=== PATIENT | male | born 1965 | race Caucasian/White ===

== ENCOUNTER 2019-03-30 11:07 | Day surgery (SDC) | payer OTHER ==
[~2019-03-30] VITALS: Ht 177.8 cm; Wt 108.9 kg
[~2019-03-30 11:07] MED LIST: CYMBALTA60 MG PO; ELAVIL75 MG PO; HUMALOG 30100 UNITS/ SQ; LANTUS INSULIN10 ML SQ; LIPITOR80 MG PO; LISINOPRIL5 MG PO; PROTONIX40 MG PO; ZANTAC300 MG PO
[2019-03-30 12:00] LABS: HEMATOCRIT 44.5 % (42.0-54.0); HEMOGLOBIN 15.1 g/dL (13.5-17.5); MCH 28.8 pg (26.0-34.0); MCHC 33.9 g/dL (31.0-37.0); MCV 84.8 fL (80.0-100.0); MEAN PLATELET VOLUME 10.1 fL (7.4-10.4); RBC 5.25 10x6/uL (4.20-6.10); RDW 12.7 % (11.5-14.5); WBC 8.3 10x3/uL (4.8-10.8)
[2019-03-30 12:02] LABS: CALC OSMOLALITY 281 mosm/kg (275-300); CALCIUM 9.1 mg/dL (8.5-10.1); CARBON DIOXIDE 29.4 mmol/L (21.0-32.0); CHLORIDE - SERUM 101 mmol/L (98-107); CREATININE - SERUM 0.9 mg/dL (0.6-1.3); GLUCOSE 230 mg/dL (74-106); POTASSIUM - SERUM 4.5 mmol/L (3.5-5.1); SODIUM 137 mmol/L (136-145); UREA NITROGEN 14 mg/dL (7-18); eGFR NON AFRICAN AMERICAN > 90 mL/min (90-120)
[2019-03-30 12:51] VITALS: BP 131/77; Ht 177.8 cm; Wt 108.9 kg
[2019-03-30] MEDS ORDERED: PERCOCET 5-3251 TAB PO (15:05)
[2019-03-30] MEDS ORDERED: DURICEF500 MG PO (15:06)
--- NOTE | 2019-03-30 15:48 | NUR ---
FSBS 166.
--- NOTE | 2019-03-30 18:02 | NUR ---
1800 DC INSTS GIVEN RX'S GIVEN VOICED UNDERSTANDING RELEASED IN WC.
--- NOTE | 2019-03-31 07:56 | OP ---
PATIENT NAME: JES CORREA MEDICAL RECORD: [id number] :63 LOCATION:[facility] ADMISSION DATE: SURGEON: TREVOR HOUSE DO DATE OF OPERATION: 03/30/2019 PROCEDURES PERFORMED: Right second metatarsal open reduction and internal fixation and bone biopsy of the first metatarsal. 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 INDICATIONS: Mr. Correa is a 53-year-old male who has a diabetic neuropathy of both feet. In the right foot, he had some pain and he did not remember injuring it. X-ray was done seeing a fracture of the second metatarsal and then what appeared to be neuropathic arthropathy versus osteomyelitis of the first metatarsophalangeal joint. An MRI was done and was inconclusive for osteomyelitis versus neuropathic arthropathy of the first metatarsophalangeal joint. Also, the second metatarsal base fracture had displaced superiorly and was bothering him and it was quite painful and informed him that there is a very big risk for infection going on in a foot like this, but he was tired of dealing with the pain and wanted something done. I told him that I would also biopsy the first metatarsal and send it to pathology and figure out what is going on with it. He was okay with that plan and is okay with the weightbearing restrictions and signed the consent. Also, the risk of blood clots and even . SURGEON: Trevor House DO DESCRIPTION OF PROCEDURE: The patient went to the operative suite, was laid in the supine position, given general anesthetic, given 2 grams of Ancef preoperatively. The right lower extremity was prepped and draped in sterile fashion. A timeout was performed and everyone was in agreement of the correct side, site, and patient and procedure. Everyone was in agreeance of the timeout. The x-ray machine was then brought in. Second metatarsal fracture was then marked as well as the first metatarsal and the inflamed first MTP joint and then bone biopsies were done in the first metatarsal and in the proximal phalanx of the first toe due to being involved and then a dorsal incision was made over the second metatarsal base. Careful dissection was made down to the base. The fracture was exposed and reduced with a T-type plate at the base and then over the fracture, the pins were kept in place holding the plate and reduction and then screws were put in first proximally and then distally and then another third screw obliquely through the fracture site. These locked into the plate and were confirmed to be in good position on AP and lateral and oblique x-rays. Once that was confirmed, the tourniquet was let down, any bleeding was coagulated with a Bovie and pickup and then the whole foot was irrigated. The skin incision for the ORIF was closed with 3-0 Vicryl in an inverted interrupted fashion and then 4-0 Prolene in a horizontal mattress fashion and then the bone biopsies were closed with horizontal mattress as well. The incision was placed with Adaptic, 4 x 4s, ABD, Webril, and Fidencio wrap and then placed into a postop OPERATIVE REPORT [id number] JES CORREA. He was awakened and taken to the recovery in stable condition. The tourniquet was inflated at the beginning of the procedure after the right lower extremity was exsanguinated with an Esmarch and a tourniquet was inflated to 350 mmHg and was up for approximately 48 minutes and then let down at the end of the procedure. TRANSINT:[id number] Voice Confirmation ID: [id number] DOCUMENT ID: [id number] TREVOR HOUSE DO at 0756 CC: [id number] DICTATION DATE: 03/30/19 1513 GARAGE DOOR HANGER: 03/30/19 2326 [facility] 03/30/19 [address] [place] [address]
== END 2019-03-30 18:15 | disposition home or self-care (01) ==
LOC: D.OPS 11:07 → D.PAN 13:30 → D.OPS 13:30
PROVIDERS: Anesthesiology; ATTEND Orthopaedic Surgery
DX: S92.321A Displaced fracture of second metatarsal bone, right foot, initial encounter for closed fracture (principal); X58.XXXA Exposure to other specified factors, initial encounter; M85.871 Other specified disorders of bone density and structure, right ankle and foot

== ENCOUNTER 2019-04-04 22:52 | Inpatient (IN) | payer OTHER ==
[~2019-04-04] VITALS: Ht 177.8 cm; Wt 120.2 kg
--- NOTE | ~2019-04-04 | HEMODYNAMI ---
PATIENT:JES EARL MEDICAL RECORD: [id number] : 63 [address] [id number] ADMISSION DATE: 04/05/19 Generatedon:04/08/201914:20 Patient name: JES EARL Patient #: [id number] SSN: : 1965 Date of study: 04/08/2019 Page: Of Hemodynamic Procedure Report Patient Data Patient Demographics Procedure consent was obtained First Name: JES Gender: Male Last Name: MADY : 1965 Middle Initial: AFLONSO Age: 53 year(s) Patient #: [id number] Race: Unknown Additional ID: [id number] Contact details [address]: [address] [place] [address] State: [place] City: [place] Zip code: [address] Admission Admission Data Admission Date: 04/05/2019 Admission Time: 0:33 Admit Source: Other Room #: D.2136 Procedure Procedure Types Cath Procedure Diagnostic Procedure LHC LHC w/Coronaries Procedure Description Procedure Date Procedure Date: 04/08/2019 Procedure Start Time: 14:10 Procedure End Time: 14:19 Procedure Staff Name Function Theodore Valenzuela MD Performing Physician Irene Luciano RT Monitor Aparna Dobbs RT Scrub Panchito Foss RT Scrub Adele Nelson RN Nurse Procedure Data Cath Procedure Fluoroscopy Diagnostic fluoroscopy Total fluoroscopy Time: 1.3 time: 1.3 min min Diagnostic fluoroscopy Total fluoroscopy dose: 488 dose: 488 mGy mGy Contrast Material Contrast Material Type Amount (ml) Isovue 370 51 Entry Location Entry Primary Successful Side Size Upsize Upsize Entry Closure Succes sful Closure Location (Fr) 1 (Fr) 2 (Fr) Remarks Device Remarks Femoral Right 5 Fr Exoseal artery Estimated blood loss: 5 ml Diagnostic catheters Device Type Used For End Catheter Placement MULTIPACK JL 4.0 5Fr Left Coronary catheter Angiography MULTIPACK 3DRC 5Fr Right Coronary catheter Angiography MULTIPACK Pigtail 5 Fr LV Angiography catheter Procedure Complications No complications Procedure Medications Medication Administration Route Dosage 0.9% NaCl I.V. 100 ml/hr Oxygen etCO2 Nasal cannula 2 l/min Lidocaine 2% added to field 20 Heparin Flush Bag added to field 2 bags (1000units/500ml NS) Versed I.V. 2 mg Fentanyl I.V. 50 mcg Fentanyl I.V. 50 mcg Hemodynamics Rest Heart Rate: 81 (bpm) Pressure Samples Time Site Value (mmHg) Purpose Heart Use Rate(bpm) 14:16 LV 123/12,14 Snapshot 87 Gradients Valve Time Site Site Mean SEP/DFP Peak To Heart Use 1 2 (mmHg) (sec/min) Peak Rate (mmHg) (bpm) Aortic 14:16 LV AO 88 Snapshots Pre Cath Intra NCS Post Cath Vital Signs Time Heart Resp SPO2 etCO2 NIBP (mmHg) Rhythm Pain Sedation Rate (ipm) (%) (mmHg) Status Level (bpm) 14:01:43 80 16 99 35.8 171/105(143) NSR 0 (11) 10(A) , No pain 14:06:10 82 16 99 34.3 171/107(138) NSR 0 (11) 10(A) , No pain 14:10:26 84 17 97 35.8 160/103(126) NSR 0 (11) 10(A) , No pain 14:14:48 81 14 98 36.6 171/99(135) NSR 0 (11) 9(A) , No pain 14:19:10 88 14 98 37.3 171/107(136) NSR 0 (11) 10(A) , No pain Medications Time Medication Route Dose Verified Delivered Reason Notes Eff ectiveness by by 14:00:39 0.9% NaCl I.V. 100 Theodore Angulo used for ml/hr St Shawn Nelson procedure MD SAUCEDO 14:00:46 Oxygen etCO2 2 Theodore Angulo used for Nasal l/min St Shawn Nelson procedure cannula MD SAUCEDO 14:00:52 Lidocaine 2% added 20ml Theodore Jaimes for local to vial [facility] anesthetic field MD SALDAÑA 14:00:55 Heparin Flush added 2 Theodore Jaimes used for Bag to bags BiancaShawn Valenzuela procedure (1000units/500ml field MD SALDAÑA NS) 14:06:34 Versed I.V. 2 mg Theodore Arredondoa for Bianca Omar sedation MD SAUCEDO 14:06:39 Fentanyl I.V. 50 Theodore [facility] [place] [place] St Shawn Nelson sedation RN 14:10:51 Fentanyl I.V. 50 Theodore [facility] St Shawn Nelson sedation business taxes specialist Log Time Note 13:42:57 Informed consent obtained and on chart 13:43:00 Admit Source: Other 13:43:20 Diagnostic Cath status Elective 13:43:22 Adele eNlson RN sent for patient. Start room use. :43:22 Time tracking: Regular hours (M-F 7:00 - 5:00) 13:43:25 Plan of Care:Hemodynamics will remain stable., Cardiac rhythm will remain stable., Comfort level will be maintained., Respiratory function will remain adequate., Patient/ family verbilizes understanding of procedure., Procedure tolerated without complication., Recovers from procedure without complications.. 13:53:10 Patient received from Med/Surg to CCL 2 Alert and oriented. Tansferred to table in Supine position. 13:53:10 Warm blankets applied, and vu hugger turned on for patient comfort. 13:53:11 Correct patient and procedure confirmed by team. 13:53:11 ECG and BP/O2 sat monitors applied to patient. 13:53:13 Pre-procedure instructions explained to patient. 13:53:13 Pre-op teaching completed and patient verbalized understanding. 13:53:16 Family in patients room. 13:53:17 Patient NPO since Midnight. 14:00:27 Vital chart was started 14:00:39 0.9% NaCl 100 ml/hr I.V. was administered by Adele Nelson RN; used for procedure; 14:00:46 Oxygen 2 l/min etCO2 Nasal cannula was administered by Adele Nelson RN; used for procedure; 14:00:52 Lidocaine 2% 20ml vial added to field was administered by Theodore Valenzuela MD; for local anesthetic; 14:00:55 Heparin Flush Bag (1000units/500ml NS) 2 bags added to field was administered by Theodore Valenzuela MD; used for procedure; 14:01:34 Baseline sample Acquired. 14:01:37 Rhythm: sinus rhythm 14:01:38 Full Disclosure recording started 14:02:00 Is the patient allergic to Iodine/contrast media? No. 14:02:02 Was the patient premedicated? No 14:02:10 Is patient on blood thinner?No 14:02:11 Patient diabetic? Yes. 14:02:12 If diabetic: On Metformin? No 14:04:13 Previous problem with sedation/anesthesia? No ? 14:04:15 Snore? Yes 14:04:17 Sleep apnea? No 14:04:20 Deviated septum? No 14:04:20 Opens mouth fully? Yes 14:04:21 Sticks out tongue? Yes 14:04:23 Airway obstruction? No ? 14:04:25 Dentures? No ? 14:04:29 Pre procedure: left dorsailis pedis pulse 2+ Normal; easily identifiable; not easily obliterated 14:04:32 Pre procedure: right dorsailis pedis pulse 1+ Palpable, but thready & weak; easily obliterated 14:04:36 Patient pain scale 0/10 ?. 14:04:46 IV patent on arrival in left forearm with 0.9% NaCl at [facility]. 14:04:49 Lab results completed and on chart. 14:04:54 Right groin area was prepped with chlora-prep and draped in sterile fashion 14:04:55 Alarms reviewed by R. N. 14:04:55 Sharps counted by scrub and verified by R.N. 14:04:57 Physician arrived 14:04:57 --------ALL STOP TIME OUT------ 14:04:58 Final Timeout: patient, procedure, and site verified with staff and physician. All members of the team are in agreement. 14:05:00 Right groin site verified by team. 14:05:04 Maximum allowable Isovue 370 dose 300ml. Physician notified. (300ml for normal creatinines. For patients with creatinine of 1.7 or higher multiply weight(kg) x 5 divided by creatinine.) 14:05:09 Fire Safety Assessment: A--An alcohol-based skin anteseptic being used preoperatively., C--Open oxygen or nitrous oxide is being used., D--An ESU, laser, or fiber-optic light is being used. 14:05:12 Physical assessment completed. ASA score P 2 - A patient with mild systemic disease as per Theodore Valenzuela MD. 14:05:15 Sedation plan: IV Moderate Sedation Medication:Versed, Fentanyl 14:05:20 Use device set Femoral Dx 14:05:21 ACIST Syringe (25687) opened to sterile field. 14:05:21 Bag Decanter (2002S) opened to sterile field. 14:05:22 Medline Cath Pack ([id number]) opened to sterile field. 14:05:22 DIAGNOSTIC WIRE .035 260cm J wire (224308) opened to sterile field. 14:05:24 ACIST Hand Control (45282) opened to sterile field. 14:05:24 ACIST Manifold (09051) opened to sterile field. 14:05:25 DIAGNOSTIC Multipack 5Fr catheter set (CM9710) opened to sterile field. 14:05:25 Tegaderm 4 x 4 (1626W) opened to sterile field. 14:05:26 SHEATH 5FR Metz (EQI540) opened to sterile field. 14:06:34 Versed 2 mg I.V. was administered by Adele Nelson RN; for sedation; 14:06:39 Fentanyl 50 mcg I.V. was administered by Adele Nelson RN; for sedation; 14:10:51 Fentanyl 50 mcg I.V. was administered by Adele Nelson RN; for sedation; 14:10:54 Procedure started. 14:10:57 Local anesthetic to right femoral artery with Lidocaine 2% by Theodore Valenzuela MD.INITIAL ACCESS ONLY 14:11:13 A 5 Fr sheath was inserted into the Right Femoral artery 14:11:56 A MULTIPACK JL 4.0 5Fr catheter was advanced over the wire and used for Left Coronary Angiography. 14:12:18 LCA angiography performed. 14:12:21 Injector settings: Ml/sec: 3, Volume: 6, 14:12:51 Catheter removed. 14:13:56 A MULTIPACK 3DRC 5Fr catheter was advanced over the wire and used for Right Coronary Angiography. 14:14:27 RCA angiography performed. 14:14:32 Injector settings: Ml/sec: 3, Volume: 6, 14:15:26 Catheter removed. 14:15:36 A MULTIPACK Pigtail 5 Fr catheter was advanced over the wire and used for LV Angiography. 14:16:06 LV hemodynamics recorded. 14:16:07 LV gram done using LORENZ 14:16:10 Injector settings: Ml/sec: 5, Volume: 15, 14:16:25 EF : 55 % 14:16:27 Catheter removed. 14:16:30 EXOSEAL 5Fr (EX500) opened to sterile field. 14:18:01 Sheath removed intact; hemostasis achieved with Exoseal to the Right Femoral artery. 14:18:02 Procedure ended.(Physican Out) 14:18:24 Fluoroscopy time 01.30 minutes. 14:18:28 Fluoroscopy dose: 488 mGy 14:18:28 Flurop Dose total: 488 14:18:32 Contrast amount:Isovue 370 51ml. 14:18:36 Sharps counted by scrub and verified by R.N. 14:18:41 Insertion/operative site no bleeding no hematoma. 14:18:44 Post procedure rhythm: unchanged. 14:18:47 Estimated blood loss: 5 ml 14:18:48 Post procedure instruction explained to patient.Patient verbalizes understanding. 14:18:49 Patient needs reinforcement of post procedure teaching. 14:18:58 Procedure and supply charges have been captured, reviewed, submitted and are correct. 14:19:11 Procedure Complication : No complications 14:19:13 Vital chart was stopped 14:19:13 See physician's report for complete and final results. 14:19:15 Report given to [facility] II. 14:19:18 Patient transfered to Med II with Stretcher. 14:19:20 Procedure ended. 14:19:20 Full Disclosure recording stopped 14:19:23 End room use (Document Last) Device Usage Item Name Manufacture Quantity Catalog Hospital Part Current Minimal L ot# / Number Charge Number Stock Stock Serial# Code ACIST Acist 1 32354 668428 504639 980152 20 Syringe Medical (42038) Systems Inc Bag Microtek 1 405827 41887 863319 5 Decanter Medical Inc. () Medline Medline 1 [id number] 993683 21807 814975 5 Cath Pack ([id number]) DIAGNOSTIC St Tony 1 005864 861266 865061 203757 30 WIRE .035 260cm J wire (397439) ACIST Hand Acist 1 84554 011922 574079 938383 5 Control Medical (48194) Systems Inc ACIST Acist 1 18540 114707 325872 990949 5 Manifold Medical (97721) Systems Inc DIAGNOSTIC Cardinal 1 NV1293 803552 10608 902861 30 [facility] 5Fr catheter set (CF5198) Tegaderm 4 3M 1 1626W 070550 704210 444792 5 x 4 (1626W) SHEATH 5FR Terumo 1 GTH284 449657 450888 358705 5 Metz (NXE309) MULTIPACK Cardinal 1 461861 5 JL 4.0 5Fr Health catheter MULTIPACK Cardinal 1 557114 5 3DRC 5Fr Health catheter MULTIPACK Cardinal 1 946288 5 Pigtail 5 Health Fr catheter EXOSEAL 5Fr Cardinal 1 EX500 332940 841082 093595 10 (EX500) Health Signature Audit [place] Stage Time Signature Unsigned Intra-Procedure 04/08/2019 Irene Luciano 2:20:02 PM RT(R) Signatures Monitor : Irene Luciano RT Signature : Date : Time : [id number] [place] [address]
[~2019-04-04 22:52] MED LIST changes: +DURICEF500 MG PO; +PERCOCET 5-3251 TAB PO
[2019-04-05] VITALS (7 sets, daily range): BP systolic 120–158; BP diastolic 74–89; Ht 177.8 cm; Wt 120.2 kg
[2019-04-05 00:04] LABS: HEMATOCRIT 43.9 % (42.0-54.0); HEMOGLOBIN 14.8 g/dL (13.5-17.5); LYMPHOCYTES 19.7 % (15-50); MCH 28.2 pg (26.0-34.0); MCHC 33.7 g/dL (31.0-37.0); MCV 83.8 fL (80.0-100.0); MEAN PLATELET VOLUME 9.2 fL (7.4-10.4); NEUTROPHILS 65.6 % (40-80); PLATELET COUNT 327 10x3/uL (130-400); RBC 5.24 10x6/uL (4.20-6.10); RDW 12.1 % (11.5-14.5); WBC 8.4 10x3/uL (4.8-10.8)
[2019-04-05 00:25] LABS: ALBUMIN 3.1 g/dL (3.4-5.0); ANION GAP 13.5 mmol/L (8-16); BILIRUBIN - TOTAL 0.23 mg/dL (0.2-1.3); CALCIUM 9.3 mg/dL (8.5-10.1); CARBON DIOXIDE 24.3 mmol/L (21.0-32.0); CREATININE - SERUM 1.1 mg/dL (0.6-1.3); POTASSIUM - SERUM 3.8 mmol/L (3.5-5.1); PROTEIN - SERUM 7.7 g/dL (6.4-8.2)
--- NOTE | 2019-04-05 04:19 | NUR ---
I have reviewed this patient and I concur with the Shift Assessment completed by the Licensed Practical Nurse today this shift.
--- NOTE | 2019-04-05 07:25 | NUR ---
ASSESSMENT DONE. DENIES NEEDS
--- NOTE | 2019-04-05 14:58 | NUR ---
I have reviewed this patient and I concur with the Shift Assessment completed by the Licensed Practical Nurse today this shift.
--- NOTE | 2019-04-05 17:20 | NUR ---
WITHOUT CHANGES OR DISTRESS NOTED ATT THIS TIME. DENIES NEEDS
[2019-04-05 22:46] LABS: BASOPHILS 0.2 % (0-2); EOSINOPHILS 3.6 % (0-7); HEMATOCRIT 44.1 % (42.0-54.0); HEMOGLOBIN 15.1 g/dL (13.5-17.5); IMMATURE GRANULOCYTES 0.3 % (0-5); LYMPHOCYTES 28.8 % (15-50); MCH 28.9 pg (26.0-34.0); MCHC 34.2 g/dL (31.0-37.0); MCV 84.5 fL (80.0-100.0); MEAN PLATELET VOLUME 9.3 fL (7.4-10.4); MONOCYTES 12.5 % (2-11); NEUTROPHILS 54.6 % (40-80); PLATELET COUNT 328 10x3/uL (130-400); RBC 5.22 10x6/uL (4.20-6.10); RDW 12.5 % (11.5-14.5); WBC 9.4 10x3/uL (4.8-10.8)
[2019-04-05 23:12] LABS: CALCIUM 9.4 mg/dL (8.5-10.1); CARBON DIOXIDE 28.1 mmol/L (21.0-32.0); CHLORIDE - SERUM 101 mmol/L (98-107); CKMB 1.7 U/L (0.0-3.6); CREATINE KINASE 127 UL (21-232); MAGNESIUM - SERUM 1.9 mg/dL (1.8-2.4); POTASSIUM - SERUM 3.7 mmol/L (3.5-5.1); SODIUM 139 mmol/L (136-145); eGFR NON AFRICAN AMERICAN 83 mL/min (90-120)
[2019-04-05 23:19] LABS: APPEARANCE CLEAR (CLEAR); BILIRUBIN NEGATIVE (NEGATIVE); COLOR YELLOW (YELLOW); GLUCOSE NEGATIVE (NEGATIVE); KETONE NEGATIVE (NEGATIVE); NITRITE NEGATIVE (NEGATIVE); PROTEIN NEGATIVE (NEGATIVE); SPECIFIC GRAVITY 1.005 (1.005-1.020); UROBILINOGEN NORMAL (NORMAL)
[2019-04-05 23:24] LABS: CALC OSMOLALITY 276 mosm/kg (275-300); GLUCOSE 92 mg/dL (74-106); TROPONIN-I < 0.017 ng/mL (0.000-0.060); UREA NITROGEN 11 mg/dL (7-18)
[2019-04-06] VITALS: BP 131/76
--- NOTE | 2019-04-06 01:52 | NUR ---
LEFT. NO NEEDS AT THIS TIME. CL IN REACH. WCTM
[2019-04-06 04:00] VITALS: BP 121/76; BP 121/79
[2019-04-06 05:44] LABS: BASOPHILS 0.3 % (0-2); EOSINOPHILS 3.8 % (0-7); HEMOGLOBIN 13.6 g/dL (13.5-17.5); IMMATURE GRANULOCYTES 0.1 % (0-5); MCH 28.4 pg (26.0-34.0); MCV 83.5 fL (80.0-100.0); MONOCYTES 13.5 % (2-11); NEUTROPHILS 58.3 % (40-80); PLATELET COUNT 295 10x3/uL (130-400); RBC 4.79 10x6/uL (4.20-6.10); RDW 12.5 % (11.5-14.5)
[2019-04-06 05:53] LABS: WBC 6.8 10x3/uL (4.8-10.8)
[2019-04-06 06:15] LABS: CALCIUM 8.7 mg/dL (8.5-10.1); CARBON DIOXIDE 24.8 mmol/L (21.0-32.0); CHLORIDE - SERUM 103 mmol/L (98-107); CKMB 1.7 U/L (0.0-3.6); CREATINE KINASE 101 UL (21-232); CREATININE - SERUM 0.9 mg/dL (0.6-1.3); POTASSIUM - SERUM 3.6 mmol/L (3.5-5.1); SODIUM 138 mmol/L (136-145); UREA NITROGEN 11 mg/dL (7-18); eGFR NON AFRICAN AMERICAN > 90 mL/min (90-120)
[2019-04-06 06:21] LABS: CALC OSMOLALITY 280 mosm/kg (275-300); GLUCOSE 201 mg/dL (74-106); TROPONIN-I < 0.017 ng/mL (0.000-0.060)
--- NOTE | 2019-04-06 07:30 | NUR ---
PT RESTING WITH EYES CLOSED. AROUSED BY VERBAL STIMULI. DELIVERED BREAKFAST. NO S/S OF ACUTE DISTRESS. CL IN PLACE.
[2019-04-06 09:12] VITALS: BP 141/91
[2019-04-06 11:36] LABS: CKMB 1.4 U/L (0.0-3.6); CREATINE KINASE 101 UL (21-232)
[2019-04-06 11:39] LABS: TROPONIN-I < 0.017 ng/mL (0.000-0.060)
[2019-04-06 12:09] VITALS: BP 137/75
--- NOTE | 2019-04-06 18:37 | NUR ---
PT RESTING IN BED. DENIES PAIN. NO S/S OF ACUTED DISTRESS. BROTHER AT BEDSIDE. CL IN PLACE.
[2019-04-06 20:56] VITALS: BP 139/79
--- NOTE | 2019-04-06 21:00 | NUR ---
FSBS 259 44 UNITS OF LANTUS GIVEN PER MAR.
--- NOTE | 2019-04-07 02:29 | NUR ---
PT RESTING IN BED. EYES CLOSED. NO SIGNS OF DISTRESS. BREATHING EVEN AND UNLABORED. BED LOWERED AND LOCKED. CALL LIGHT IN REACH. WILL CONTINUE PLAN OF CARE.
--- NOTE | 2019-04-07 03:12 | NUR ---
I have reviewed this patient and I concur with the Shift Assessment completed by the Licensed Practical Nurse today this shift.
[2019-04-07 05:23] VITALS: BP 131/63
--- NOTE | 2019-04-07 06:12 | NUR ---
FSBS 131 20 UNITS OF HUMALOG GIVEN PER MAR.
[2019-04-07 06:37] LABS: BASOPHILS 0.1 % (0-2); EOSINOPHILS 4.2 % (0-7); HEMATOCRIT 42.1 % (42.0-54.0); HEMOGLOBIN 14.5 g/dL (13.5-17.5); IMMATURE GRANULOCYTES 0.4 % (0-5); LYMPHOCYTES 21.5 % (15-50); MCH 28.7 pg (26.0-34.0); MCHC 34.4 g/dL (31.0-37.0); MCV 83.2 fL (80.0-100.0); MEAN PLATELET VOLUME 9.7 fL (7.4-10.4); MONOCYTES 11.6 % (2-11); NEUTROPHILS 62.2 % (40-80); PLATELET COUNT 293 10x3/uL (130-400); RBC 5.06 10x6/uL (4.20-6.10); RDW 12.4 % (11.5-14.5)
[2019-04-07 07:15] LABS: CALC OSMOLALITY 279 mosm/kg (275-300); CALCIUM 9.1 mg/dL (8.5-10.1); CARBON DIOXIDE 26.7 mmol/L (21.0-32.0); CHLORIDE - SERUM 104 mmol/L (98-107); CREATININE - SERUM 0.9 mg/dL (0.6-1.3); POTASSIUM - SERUM 3.6 mmol/L (3.5-5.1); SODIUM 139 mmol/L (136-145); UREA NITROGEN 12 mg/dL (7-18); eGFR NON AFRICAN AMERICAN > 90 mL/min (90-120)
[2019-04-07 07:16] LABS: GLUCOSE 140 mg/dL (74-106)
--- NOTE | 2019-04-07 08:06 | NUR ---
PT RESTING IN BED. DENIES ANY NEEDS. NO S/S OF ACUTE DISTRESS. CL IN PLACE.
[2019-04-07 08:55] VITALS: BP 137/86
[2019-04-07 12:24] VITALS: BP 145/83
--- NOTE | 2019-04-07 16:26 | MORECARE ---
CASE MANAGEMENT DISCHARGE SUMMARY PATIENT: JES CORREA UNIT: [id number] ADM DATE: 04/05/19 AGE: 53 : 63 SEX: M ROOM/BED: D.2229 AUTHOR: BETZY,DOC PHYSICIAN: REFERRING PHYSICIAN: FRANCISCA PRAKASH MD DATE OF SERVICE: 04/07/19 Discharge Plan Patient Name: JES CORREA Facility: [facility]:[place] : 1965 Planned Disposition: Home Anticipated Discharge Date: 04/08/19 Discharge Date: Expected LOS: 3 Initial Reviewer: [email or web address] Initial Review Date: 04/07/2019 Generated: 04/07/19 5:26 pm Comments DCP- Discharge Planning Updated by [email or web address]: Ramya Reyes on 04/07/19 3:[address] Patient Name: JES CORREA Admission Status: ER Accout number: [id number] Admission Date: 04-05-2019 : 1965 Admission Diagnosis: Attending: FRANCISCA PRAKASH Current LOS: 2 Anticipated DC Date: 04-08-2019 Planned Disposition: Home Primary Insurance: [employer] Discharge Planning Comments: CM met with patient to complete initial dc planning assessment. CM educated patient on the CM role and verbal consent given by patient to complete assessment. Patient lives at home with his . At discharge patient plans to return and feels this is a safe discharge. CM discussed availability of home health, rehab services, and medical equipment. Patient denied known discharge needs at this time. States his will drive him home on discharge. CM will continue to follow and will assist as needed with dc plans/needs Bowstring Maker: Ramya Reyes DCPIA - Discharge Planning Initial Assessment Updated by [id number]: Ramya Reyes on 04/07/19 4:25 pm * Is the patient Alert and Oriented? Yes * How many steps to enter\exit or inside your home? 4/2 * PCP Dr. Rodríguez * Pharmacy [facility] on [address] * Preadmission Environment Home with Family * ADLs Independent * Equipment Crutch * List name and contact numbers for known caregivers / representatives who currently or will assist patient after discharge: Aida Correa - [facility] - [phone] * Verbal permission to speak to the caregivers and representatives has been obtained from the patient. Yes * Community resources currently utilized None * Additional services required to return to the preadmission environment? No * Can the patient safely return to the preadmission environment? Yes * Has this patient been hospitalized within the prior 30 days at any hospital? No Patient Name: JES CORREA Page [id number] at 1626 All edits/amendments must be made on the electronic document DICTATION DATE: 04/07/191625 CORRUGATED SHEET MATERIAL SHEETER: ANJEL 04/07/191625 RPT#: [id number] DC DATE: STATUS: ADM IN [facility] [address] [place] [address] END OF REPORT
[2019-04-07 17:34] VITALS: BP 150/82
--- NOTE | 2019-04-07 18:14 | NUR ---
PT PULLED IV OUT WHEN, "SITTING UP ON SIDE OF BED TO EAT MY DINNER." DC IV WITH TIP IN TACT. IV SITED TO L WRIST. FLUSHED WELL. NO REDDNESS OR SWELLING NOTED. NO S/S OF ACUTE DISTRESS. CL IN PLACE.
[2019-04-07 20:00] VITALS: BP 144/83
[2019-04-08] VITALS: BP 152/87
[2019-04-08 04:00] VITALS: BP 151/83
[2019-04-08 06:10] LABS: BASOPHILS 0.3 % (0-2); EOSINOPHILS 3.7 % (0-7); HEMATOCRIT 42.4 % (42.0-54.0); HEMOGLOBIN 14.6 g/dL (13.5-17.5); IMMATURE GRANULOCYTES 0.3 % (0-5); LYMPHOCYTES 24.2 % (15-50); MCH 28.4 pg (26.0-34.0); MCHC 34.4 g/dL (31.0-37.0); MCV 82.5 fL (80.0-100.0); MEAN PLATELET VOLUME 9.5 fL (7.4-10.4); MONOCYTES 12.7 % (2-11); NEUTROPHILS 58.8 % (40-80); PLATELET COUNT 297 10x3/uL (130-400); RBC 5.14 10x6/uL (4.20-6.10); RDW 12.4 % (11.5-14.5); WBC 7.3 10x3/uL (4.8-10.8)
[2019-04-08 06:16] LABS: CALC OSMOLALITY 279 mosm/kg (275-300); CALCIUM 8.9 mg/dL (8.5-10.1); CARBON DIOXIDE 26.1 mmol/L (21.0-32.0); CHLORIDE - SERUM 106 mmol/L (98-107); CREATININE - SERUM 0.9 mg/dL (0.6-1.3); GLUCOSE 95 mg/dL (74-106); POTASSIUM - SERUM 3.5 mmol/L (3.5-5.1); SODIUM 141 mmol/L (136-145); UREA NITROGEN 10 mg/dL (7-18); eGFR NON AFRICAN AMERICAN > 90 mL/min (90-120)
--- NOTE | 2019-04-08 07:31 | NUR ---
ASSESSED AT THE BEGINNING OF THE SHIFT. PT IS ALERT AND ORIENTED, ABLE VERBALZIE NEEDS AND GET UP TO BATHROOM. HIS RIGHT FOOT IS SWOLLEN AND THERE IS MININAL DRAINAAAAAG FROM INCISIONS. HE HAS TELEMETRY IN PLACE AND IT SHOWS SR IN THE 90'S. HE HAS NO VOICED DANIELLE COMPLAINTS AND HAS RESTED WELL DURING THE NIGHT.
--- NOTE | 2019-04-08 07:33 | NUR ---
ALERT AND ORIENTED X 3. LUNGS CLEAR BILATERALLY IN ALL IBRAHIM. HEART SOUNDS S1 AND S2 HEARD IN ALL IBRAHIM. TELEMETRY IN PLACE. BOWEL SOUNDS ACTIVE X 4. SKIN INTACT WITHOUT REDNESS. RIGHT FOOT SWOLLEN FROM SURGERY LAST WEEK FOR FRACTURE. IV TO LEFT WRIST PATENT WITHOUT REDNESS. DENIES PAIN. REQUESTED AND GIVEN COFFEE. DENIES FURTHER NEEDS. BED LOW. CALL CRESPO AND PERSONAL ITEMS IN REACH. WILL CONTINUE TO MONITOR.
[2019-04-08 08:00] VITALS: BP 142/88
--- NOTE | 2019-04-08 09:36 | NUR ---
CONSENTS OBTAINED FOR PROCEDURE. DENIES QUESTIONS.
[2019-04-08] MEDS ORDERED: SULFAMETHOXAZOL1 TA3 PO (09:39)
--- NOTE | 2019-04-08 09:47 | EC ---
PATIENT:JES EARL DATE OF SERVICE: 04/05/19 SEX: M MEDICAL RECORD: [id number] DATE OF : [birth year] LOCATION:D.[facility] [place] AGE OF PATIENT: 53 ADMISSION DATE: 04/05/19 REFERRING PHYSICIAN: INTERPRETING PHYSICIAN: MAYELA VAZQUEZ MD ECHOCARDIOGRAM REPORT ECHO CHARGES 4 ECHO COMPLETE Date: 04/06/19 CLINICAL DIAGNOSIS: VTACH ECHOCARDIOGRAPHIC MEASUREMENTS (adult normal given) AC root (d.<3.7cm) 3.4 cm LV Septum d (<1.2 cm> 0.8 cm Valve Excursion 1.8 cm LV Septum (systole) 1.4 cm Left Atria (s.<4.0cm> 3.2 cm LVPW d(<1.2cm) 1.4 cm RV (d.<2.3cm) 2.7 cm LVPW (sytole) 1.8 cm LV diastole(<5.6CM) 4.8 cm MV E-F(>70mm/sec) cm LV systole 3.1 cm LVOT Diameter 1.8 cm MV exc.(>10mm) cm Est.ejection fraction (50-75%) % DOPPLER: LVIT cm/sec A 80 cm/sec E 63 cm/sec LA cm/sec RVSP 29.3 mmHg LVOT 90 cm/sec AOP1/2T m/s Asc. Ao 126 cm/sec RVOT 64 cm/sec RA cm/sec PA 75 cm/sec AV Gradient Peak 6.3 mmHg AV Mean 4.2 mmHg AV Area 1.6 cm MV Gradient Peak 5.4 mmHg MV Mean 2.2 mmHg MV Area cm COMMENTS: Clay Machine Operator: Refugio GUTIERREZ Stringer Machine Tender: 3 Dr. Arreola TAPE# PACS Pericardial Effusion N DATE OF SERVICE: Adequate 2-D echo, color-flow and spectral Doppler, and M-mode. No LVH. LV internal dimensions are normal. Wall motion is normal. EF is greater than or equal to 55%. Aortic valve is tricuspid. No evidence of stenosis by Doppler interrogation. Left atrium is normal. Mitral valve shows no prolapse. Trace MR. Right-sided chambers are grossly normal. Trace TR. TRANSINT:[id number] Voice Confirmation ID: [id number] DOCUMENT ID: [id number] ECHOCARDIOGRAM REPORT [id number] MADY,JES MAYELA REES MD at 0947 CC: [id number] DICTATION DATE: 04/07/19 1306 USABILITY ENGINEER: 04/07/19 1329 ADM IN [id number] [place] [id number]
--- NOTE | 2019-04-08 10:43 | NUR ---
RESTING IN BED. DENIES PAIN. DENIES NEEDS. WILL CONTINUE TO MONITOR.
--- NOTE | 2019-04-08 11:11 | NUR ---
PATIENT BLOOD SUGAR 120. SCHEDULED 20 UNITS INSULIN DUE. PATIENT NPO FOR PROCEDURE. TALKED WITH PATIENT AND BOTH AGREED SHOULD HOLD SCHEDULED INSULIN. WILL CONTINUE TO MONITOR.
--- NOTE | 2019-04-08 13:02 | NUR ---
PREOP MEDICATIONS GIVEN PER ORDER.
--- NOTE | 2019-04-08 15:00 | NUR ---
RECEIVED PT FROM C SOFTWARE DEVELOPER. PT IS AAO AND LYING SUPINE. CATH SITE IS C/D/I WITH NO S/S OF HEMATOMA PRESENT. NS INFUSING @100ML/HR VIA L.WRIST PIV. RR EVEN AND UNLABORED ON RA. WILL CTM.
[2019-04-08 15:22] VITALS: BP 132/90
--- NOTE | 2019-04-08 16:59 | NUR ---
PT DISCHARGED HOME VIA WHEELCHAIR WITH FAMILY. PIV REMOVED WITH CATHETER TIP FULLY INTACT. TELEMETRY REMOVED AND RETURNED. PT SIGNED PROPER DISCHARGE INSTRUCTION AND REMOVED ALL VALUABLES FROM THE ROOM. RIGHT FEM CATH SITE C/D/I WITH NO S/S OF HEMATOMA PRESENT.
--- NOTE | 2019-04-11 10:40 | MORECARE ---
CASE MANAGEMENT DISCHARGE SUMMARY PATIENT: JES EARL UNIT: [id number] ADM DATE: 04/05/19 AGE: 53 : 63 SEX: M ROOM/BED: D.9796 AUTHOR: BETZY,DOC PHYSICIAN: REFERRING PHYSICIAN: FRANCISCA PRAKASH MD DATE OF SERVICE: 04/11/19 Discharge Plan Patient Name: JES EARL Facility: [facility]:[place] : 1965 Planned Disposition: Home Anticipated Discharge Date: 04/08/19 Discharge Date: 04/08/2019 Expected LOS: 3 Initial Reviewer: [email or web address] Initial Review Date: 04/07/2019 Generated: 04/11/19 11:39 am DCP- Discharge Planning Updated by [email or web address]: Ramya Reyes on 04/07/19 3:[address] Patient Name: JES EARL Admission Status: ER Accout number: [id number] Admission Date: 04-05-2019 : 1965 Admission Diagnosis: Attending: FRANCISCA PRAKASH Current LOS: 2 Anticipated DC Date: 04-08-2019 Planned Disposition: Home Primary Insurance: TRIC[employer]ER Discharge Planning Comments: CM met with patient to complete initial dc planning assessment. CM educated patient on the CM role and verbal consent given by patient to complete assessment. Patient lives at home with his . At discharge patient plans to return and feels this is a safe discharge. CM discussed availability of home health, rehab services, and medical equipment. Patient denied known discharge needs at this time. States his will drive him home on discharge. CM will continue to follow and will assist as needed with dc plans/needs [employer] Wafers Saw Operator: Ramya Reyes DCPIA - Discharge Planning Initial Assessment Updated by [email or web address]: Ramya Reyes on 04/07/19 4:25 pm * Is the patient Alert and Oriented? Yes * How many steps to enter\exit or inside your home? 4/2 * PCP Dr. Rodríguez * Pharmacy [facility] on [facility] * Preadmission Environment Home with Family * ADLs Independent * Equipment Crutch * List name and contact numbers for known caregivers / representatives who currently or will assist patient after discharge: Aida Sunny - [facility] - [phone] * Verbal permission to speak to the caregivers and representatives has been obtained from the patient. Yes * Community resources currently utilized None * Additional services required to return to the preadmission environment? No * Can the patient safely return to the preadmission environment? Yes * Has this patient been hospitalized within the prior 30 days at any hospital? No Last DP export: 04/07/19 3:26 p Patient Name: JES EARL Page [id number] at 1040 All edits/amendments must be made on the electronic document DICTATION DATE: 04/11/19 1039 FUND ACCOUNTING MANAGER: ANJEL 04/11/19 1039 RPT#: [id number] DC DATE:04/08/19 STATUS: DIS IN [facility] [address] [place] [address] END OF REPORT
--- NOTE | 2019-04-11 15:06 | OP ---
PATIENT NAME: JES EARL MEDICAL RECORD: [id number] :63 LOCATION:D.M2 D.2136 ADMISSION DATE:04/05/19 SURGEON: MAYELA VAZQUEZ MD DATE OF OPERATION: 04/08/2019 PROCEDURE: Left heart catheterization, selective coronary angiography, right femoral artery approach. CATHETERS: A 5-Turkish sheath, 5/4 left and right Claudy, 5/4 pig. The procedure was well tolerated. The patient was returned to foster. Sheath was removed. ExoSeal device was placed. FINDINGS: Left ventriculography in 30-degree LORENZ view: Normal wall motion. Normal systolic function. CORONARY ANATOMY: LEFT MAIN: Left main is free of disease. LAD: Free of disease in the diagonal system. CIRCUMFLEX: Free of disease in the marginal system. RIGHT CORONARY ARTERY: Dominant artery, gives rise to PDA, free of disease. IMPRESSION: Normal systolic function, normal coronary anatomy. TRANSINT:[id number] Voice Confirmation ID: [id number] DOCUMENT ID: [id number] MAYELA VAZQUEZ MD at 1506 CC: [id number] DICTATION DATE: 04/08/19 1426 FILM PRINTER: 04/08/19 1855 DIS IN 04/08/19 [facility] [address] [place] [address]
== END 2019-04-08 17:10 | disposition home or self-care (01) | DRG 920 ==
LOC: D.ER 22:52 → D.MS 04-05 00:33 → D.M2 04-05 00:33 → D.MS 04-05 19:21 → D.M2 04-08 13:49
PROVIDERS: Family Medicine; ADMIT Internal Medicine Nephrology; ATTEND Internal Medicine Nephrology
DX: L76.82 Other postprocedural complications of skin and subcutaneous tissue (principal); L03.115 Cellulitis of right lower limb; I10 Essential (primary) hypertension; E11.9 Type 2 diabetes mellitus without complications; E78.5 Hyperlipidemia, unspecified

== ENCOUNTER 2019-04-14 06:04 | Inpatient (IN) | payer OTHER ==
[~2019-04-14] VITALS: Ht 177.8 cm; Wt 108.6 kg
[~2019-04-14 06:04] MED LIST changes: +SULFAMETHOXAZOL1 TA3 PO
[2019-04-14 06:30] LABS: HEMATOCRIT 43.7 % (42.0-54.0); HEMOGLOBIN 14.8 g/dL (13.5-17.5); MCH 28.7 pg (26.0-34.0); MCHC 33.9 g/dL (31.0-37.0); MCV 84.7 fL (80.0-100.0); MEAN PLATELET VOLUME 9.5 fL (7.4-10.4); RBC 5.16 10x6/uL (4.20-6.10); RDW 13.1 % (11.5-14.5); WBC 6.7 10x3/uL (4.8-10.8)
[2019-04-14 06:42] LABS: ANION GAP 11.6 mmol/L (8-16); CALCIUM 9.2 mg/dL (8.5-10.1); CARBON DIOXIDE 27.9 mmol/L (21.0-32.0); CREATININE - SERUM 1.1 mg/dL (0.6-1.3); POTASSIUM - SERUM 4.5 mmol/L (3.5-5.1)
[2019-04-14 08:16] VITALS: BP 135/76; BMI 34.5
[2019-04-14 12:13] VITALS: BP 136/87
[2019-04-14 12:22] VITALS: BP 136/87; Ht 177.8 cm; Wt 108.6 kg
--- NOTE | 2019-04-14 12:28 | NUR ---
PT TO ROOM 2216 FROM PACU VIA STRETCHER. DRESSING TO RIGHT FOOT CDI WITH DRAIN IN PLACE, WITHOUT DRAINAGE. PT FOOT WARM TO TOUCH AND HE CAN WIGGLE TOES. ICE PACK IN PLACE. ORIENTATION TO ROOM WITH PT AND FAMILY. ASSESSMENT PER FLOW SHEET.CALL LIGHT IN REACH
--- NOTE | 2019-04-14 14:01 | NUR ---
SLEEPING,WITHOUT SIGNS OF DISTRESS. AT BEDSIDE
--- NOTE | 2019-04-14 21:12 | NUR ---
PT ALERT & ORIENTED. RIGHT FOOT ELEVATED. DRESSING C/D/I AND HEMOVAC IN PLACE. RATES PAIN 12/26. GAVE NORCO-7.5 1 TAB PO. NO OTHER NEEDS. WILL REASSESS AND CONTINUE TO MONITOR.
[2019-04-14 21:22] VITALS: BP 120/60
[2019-04-15 01:15] VITALS: BP 126/66
[2019-04-15 06:04] VITALS: BP 169/94
[2019-04-15 07:32] LABS: ANION GAP 13.3 mmol/L (8-16); CALCIUM 8.7 mg/dL (8.5-10.1); CARBON DIOXIDE 26.8 mmol/L (21.0-32.0); CREATININE - SERUM 1.1 mg/dL (0.6-1.3); POTASSIUM - SERUM 4.1 mmol/L (3.5-5.1)
--- NOTE | 2019-04-15 07:45 | NUR ---
PT RESTING IN BED WITH RIGHT FOOT ELEVATED. REPORTS PAIN 1/10 AT THIS TIME. SALINE LOC TO LEFT HAND SITE WITHOUT REDNESS OR EDEMA. DRESSING C/D/I TO RIGHT LOWER EXTREMITY. BRADLEY DRAIN INTACT NO DRAINAGE NOTED. DENIES FURTHER NEEDS AT THIS TIME. CL WITHIN REACH. ENCOURAGED TO CALL WITH NEEDS. CONTINUE POC
[2019-04-15 07:55] LABS: BASOPHILS 0.1 % (0-2); EOSINOPHILS 2.8 % (0-7); HEMATOCRIT 41.6 % (42.0-54.0); HEMOGLOBIN 13.6 g/dL (13.5-17.5); IMMATURE GRANULOCYTES 0.4 % (0-5); LYMPHOCYTES 27.4 % (15-50); MCHC 32.7 g/dL (31.0-37.0); MCV 85.8 fL (80.0-100.0); MEAN PLATELET VOLUME 10.1 fL (7.4-10.4); NEUTROPHILS 57.3 % (40-80); PLATELET COUNT 311 10x3/uL (130-400); RBC 4.85 10x6/uL (4.20-6.10); RDW 13.2 % (11.5-14.5); WBC 7.9 10x3/uL (4.8-10.8)
--- NOTE | 2019-04-15 08:30 | NUR ---
Pressure injury prevention: Remind/assist pt in turning/repositioning q 2 hours while in bed Float heels off mattress Elevate right foot (due to surgery)
[2019-04-15 08:40] VITALS: BP 155/93
[2019-04-15 12:03] VITALS: BP 163/85
--- NOTE | 2019-04-15 12:55 | NUR ---
PT PULLED HEMOVAC DRAIN FROM RIGHT LOWER EXTREMITY. NO DRAINAGE NOTED IN HEMOVAC DRAIN, NO DRAINAGE TO DRESSING. INFORMED PT MD WOULD BE CONTACTED. PT VOICES UNDERSTANDING.
--- NOTE | 2019-04-15 13:00 | NUR ---
ATTEMPTED TO CONTACT DR. LEDA SOSAING HEMOVAC BEING PULLED BY PT. NO ANSWER, MSG LEFT
--- NOTE | 2019-04-15 13:45 | NUR ---
NO RETURN CALL FROM DR. TOMPKINS, PAGED HIM AT THIS TIME.
--- NOTE | 2019-04-15 14:00 | NUR ---
RETURN CALL FROM DR. TOMPKINS. INFORMED HIM OF PT ACCIDENTLY PULLING DRAIN OUT. VOICES UNDERSTANDING. NO NEW ORDERS.
[2019-04-15 16:39] VITALS: BP 151/85
--- NOTE | 2019-04-15 20:25 | NUR ---
PT ALERT & ORIENTED. C/O PAIN 03/28. GAVE NORCO-7.5 1 TAB PO AND SCHEDULED MEDS. FSBS 237 - GAVE INSULIN PER SS. COMPLETE ASSESSMENT PER FLOW-SHEET. NO OTHER NEEDS. WILL CONTINUE TO MONITOR.
[2019-04-16] VITALS: BP 130/67
[2019-04-16 04:00] VITALS: BP 135/61
[2019-04-16 07:49] LABS: BASOPHILS 0.2 % (0-2); EOSINOPHILS 4.2 % (0-7); HEMATOCRIT 41.2 % (42.0-54.0); HEMOGLOBIN 13.9 g/dL (13.5-17.5); IMMATURE GRANULOCYTES 0.3 % (0-5); LYMPHOCYTES 27.4 % (15-50); MCH 28.4 pg (26.0-34.0); MCHC 33.7 g/dL (31.0-37.0); MCV 84.1 fL (80.0-100.0); MEAN PLATELET VOLUME 9.6 fL (7.4-10.4); MONOCYTES 13.1 % (2-11); NEUTROPHILS 54.8 % (40-80); PLATELET COUNT 295 10x3/uL (130-400); RDW 12.7 % (11.5-14.5); WBC 6.4 10x3/uL (4.8-10.8)
[2019-04-16 08:43] VITALS: BP 151/85
[2019-04-16 10:37] LABS: ALKALINE PHOSPHATASE 163 U/L (46-116); ALT (SGPT) 35 U/L (10-68); BILIRUBIN - TOTAL 0.23 mg/dL (0.2-1.3); CALC OSMOLALITY 280 mosm/kg (275-300); CALCIUM 8.8 mg/dL (8.5-10.1); CARBON DIOXIDE 28.1 mmol/L (21.0-32.0); CHLORIDE - SERUM 103 mmol/L (98-107); GLUCOSE 190 mg/dL (74-106); PROTEIN - SERUM 6.8 g/dL (6.4-8.2); SODIUM 138 mmol/L (136-145); UREA NITROGEN 13 mg/dL (7-18); eGFR NON AFRICAN AMERICAN 83 mL/min (90-120)
[2019-04-16 12:32] VITALS: BP 143/94
--- NOTE | 2019-04-16 12:56 | NUR ---
PT RESTING IN BED. NO SIGNS OF DISTRESS. IV TO LEFT HAND PATENT NO REDNESS OR TENDERNESS. DENIES ANY FUTHER NEED AT THIS TIME. CALL LIGHT IN REACH. BED LOW POSITION. NO FAMILY AT BEDSIDE AT THIS TIEM.
[2019-04-16 16:59] VITALS: BP 126/63
[2019-04-16 20:40] VITALS: BP 161/95
--- NOTE | 2019-04-16 22:25 | NUR ---
PT ALERT & ORIENTED. C/O RIGHT FOOT PAIN 02/25. GAVE NORCO-7.5 MG PO AND SCHEDULED MEDS. FSBS 287 - GAVE INSULIN PER SS. DRESSING TO RIGHT FOOT C/D/I. ASSESSMENT COMPLETE PER FLOW-SHEET. NO OTHER NEEDS. WILL REASSESS AND CONTINUE TO MONITOR.
[2019-04-17 00:56] VITALS: BP 147/84
[2019-04-17 06:47] LABS: BASOPHILS 0.1 % (0-2); EOSINOPHILS 4.6 % (0-7); HEMOGLOBIN 14.6 g/dL (13.5-17.5); IMMATURE GRANULOCYTES 0.3 % (0-5); LYMPHOCYTES 25.7 % (15-50); MCH 28.4 pg (26.0-34.0); MCV 83.7 fL (80.0-100.0); MEAN PLATELET VOLUME 9.4 fL (7.4-10.4); MONOCYTES 13.8 % (2-11); NEUTROPHILS 55.5 % (40-80); PLATELET COUNT 280 10x3/uL (130-400); RBC 5.14 10x6/uL (4.20-6.10); RDW 12.7 % (11.5-14.5); WBC 7.3 10x3/uL (4.8-10.8)
[2019-04-17 07:20] LABS: ALBUMIN 3.2 g/dL (3.4-5.0); ALKALINE PHOSPHATASE 165 U/L (46-116); ALT (SGPT) 33 U/L (10-68); CALC OSMOLALITY 278 mosm/kg (275-300); CALCIUM 8.9 mg/dL (8.5-10.1); CARBON DIOXIDE 28.1 mmol/L (21.0-32.0); CHLORIDE - SERUM 104 mmol/L (98-107); CREATININE - SERUM 0.9 mg/dL (0.6-1.3); POTASSIUM - SERUM 3.6 mmol/L (3.5-5.1); PROTEIN - SERUM 6.9 g/dL (6.4-8.2); SODIUM 140 mmol/L (136-145); UREA NITROGEN 12 mg/dL (7-18); eGFR NON AFRICAN AMERICAN > 90 mL/min (90-120)
[2019-04-17 07:21] LABS: GLUCOSE 99 mg/dL (74-106)
[2019-04-17 10:25] VITALS: BP 123/77
--- NOTE | 2019-04-17 10:54 | NUR ---
PT RESTING IN BED NO SIGNS OF DISTRESS.IV TO LEFT HAND PATENT NO REDNESS OR TENDERNESS. INCISION TO RIGHT FOOT. DENIES ANY FUTHER NEED AT THIS TIME. CALL LIGHT IN REACH. BED LOW POSITION. NO FAMILY AT BEDSIDE AT THIS TIME.
[2019-04-17 15:42] VITALS: BP 126/78
--- NOTE | 2019-04-17 19:10 | NUR ---
I have reviewed this patient and I concur with the Shift Assessment completed by the Licensed Practical Nurse today this shift.
[2019-04-17 21:22] VITALS: BP 142/84
--- NOTE | 2019-04-17 21:54 | NUR ---
FSBS 474 - PT HAD LARGE TRIPLE CHOCOLATE MILKSHAKE. TREATED PER SS. GAVE PT SNACK OF WES CRACKERS. COMPLETE ASSESSMENT PER FLOW-SHEET. WILL CONTINUE TO MONITOR.
[2019-04-18 01:06] VITALS: BP 134/79
[2019-04-18 04:56] VITALS: BP 141/78
[2019-04-18 05:09] LABS: BASOPHILS 0.2 % (0-2); EOSINOPHILS 3.5 % (0-7); HEMATOCRIT 44.1 % (42.0-54.0); HEMOGLOBIN 14.9 g/dL (13.5-17.5); IMMATURE GRANULOCYTES 0.3 % (0-5); LYMPHOCYTES 37.8 % (15-50); MCH 28.4 pg (26.0-34.0); MCHC 33.8 g/dL (31.0-37.0); MCV 84.2 fL (80.0-100.0); MEAN PLATELET VOLUME 9.7 fL (7.4-10.4); MONOCYTES 13.2 % (2-11); PLATELET COUNT 314 10x3/uL (130-400); RBC 5.24 10x6/uL (4.20-6.10); RDW 12.8 % (11.5-14.5)
[2019-04-18 05:38] LABS: WBC 9.5 10x3/uL (4.8-10.8)
[2019-04-18 05:41] LABS: ALBUMIN 3.2 g/dL (3.4-5.0); ALKALINE PHOSPHATASE 165 U/L (46-116); ALT (SGPT) 40 U/L (10-68); BILIRUBIN - TOTAL 0.23 mg/dL (0.2-1.3); CALC OSMOLALITY 283 mosm/kg (275-300); CALCIUM 9.3 mg/dL (8.5-10.1); CARBON DIOXIDE 30.4 mmol/L (21.0-32.0); CHLORIDE - SERUM 104 mmol/L (98-107); GLUCOSE 78 mg/dL (74-106); POTASSIUM - SERUM 3.4 mmol/L (3.5-5.1); PROTEIN - SERUM 7.3 g/dL (6.4-8.2); SODIUM 143 mmol/L (136-145); UREA NITROGEN 12 mg/dL (7-18); eGFR NON AFRICAN AMERICAN 83 mL/min (90-120)
[2019-04-18] MEDS ORDERED: AUGMENTIN 875-11 TAB PO (09:41)
[2019-04-18 10:15] VITALS: BP 141/86
--- NOTE | 2019-04-18 11:30 | MORECARE ---
CASE MANAGEMENT DISCHARGE SUMMARY PATIENT: JES EARL UNIT: [id number] ADM DATE: 04/14/19 AGE: 53 : 63 SEX: M ROOM/BED: D.2216 AUTHOR: XIN BO PHYSICIAN: REFERRING PHYSICIAN: BRADLEY TOMPKINS MD DATE OF SERVICE: 04/18/19 Discharge Plan Patient Name: JES EARL [facility] [facility] 1965 Planned Disposition: Home Anticipated Discharge Date: 04/18/19 Discharge Date: Expected LOS: 4 Initial Reviewer: [email or web address] Initial Review Date: 04/18/2019 Generated: 04/18/19 12:30 pm DCPIA - Discharge Planning Initial Assessment Updated by [email or web address]: She Uriostegui on 04/18/19 11:30 am * Is the patient Alert and Oriented? Yes * PCP EYAD * [facility] * Preadmission Environment Home with Family * ADLs Independent * Equipment None * List name and contact numbers for known caregivers / representatives who currently or will assist patient after discharge: ANALILIA, SPOUSE, * Verbal permission to speak to the caregivers and representatives has been obtained from the patient. Yes * Additional services required to return to the preadmission environment? No * Can the patient safely return to the preadmission environment? Yes * Has this patient been hospitalized within the prior 30 days at any hospital? Yes Patient Name: JES EARL Page [id number] at 1130 All edits/amendments must be made on the electronic document DICTATION DATE: 04/18/19 1130 HEAD DOFFER: ANJEL 04/18/19 1130 RPT#: [id number] DC DATE: STATUS: ADM IN [facility] [address] [place] [address] END OF REPORT
--- NOTE | 2019-04-18 11:37 | MORECARE ---
CASE MANAGEMENT DISCHARGE SUMMARY PATIENT: JES EARL UNIT: [id number] ADM DATE: 04/14/19 AGE: 53 : 63 SEX: M ROOM/BED: D.2216 AUTHOR: BETZY,DOC PHYSICIAN: REFERRING PHYSICIAN: BRADLEY TOMPKINS MD DATE OF SERVICE: 04/18/19 Discharge Plan Patient Name: JES EARL Facility: [facility]:[place] : 1965 Planned Disposition: Home Anticipated Discharge Date: 04/18/19 Discharge Date: Expected LOS: 4 Initial Reviewer: [email or web address] Initial Review Date: 04/18/2019 Generated: 04/18/19 12:37 pm Comments DCP- Discharge Planning Updated by [email or web address]: She Uriostegui on 04/18/19 10:[address] Patient Name: JES EARL Admission Status: Elective Accout number: [id number] Admission Date: 04-14-2019 : 1965 Admission Diagnosis:DISPLACEMENT OF INT FIX OF BONES OF FOOT AND TOES, INIT Attending: BRADLEY TOMPKINS Current LOS: 4 Anticipated DC Date: 04-18-2019 Planned Disposition: Home Primary Insurance: TRICAREER Discharge Planning Comments: CM MET WITH PATIENT ABOUT DC PLANNING AND NEEDS. STATES WOULD LIKE A KNEE SCOOTER. I CHECKED AND INSURANCE DOESN'T COVER. WILL GIVE HIM INFORMATION ON DME COMPANIES HE CAN RENT OR BUY ONE FROM. HOME IS SAFE. CM TO FOLLOW AND ASSIST NEEDED. Multimedia Journalist: She Uriostegui DCPIA - Discharge Planning Initial Assessment Updated by [email or web address]: She Uriostegui on 04/18/19 11:30 am * Is the patient Alert and Oriented? Yes * PCP EYAD * [facility] * Preadmission Environment Home with Family * ADLs Independent * Equipment None * List name and contact numbers for known caregivers / representatives who currently or will assist patient after discharge: ANALILIA, SPOUSE, * Verbal permission to speak to the caregivers and representatives has been obtained from the patient. Yes * Additional services required to return to the preadmission environment? No * Can the patient safely return to the preadmission environment? Yes * Has this patient been hospitalized within the prior 30 days at any hospital? Yes Last DP export: 04/18/19 10:30 am Patient Name: JES EARL Page 95816 at 1137 All edits/amendments must be made on the electronic document DICTATION DATE: 04/18/19 1136 GAS METER PROVER: ANJEL 04/18/19 1136 RPT#: [id number] DC DATE: STATUS: ADM IN [facility] [address] [place] [address] END OF REPORT
[2019-04-18 12:28] VITALS: BP 130/82
--- NOTE | 2019-04-18 17:57 | MORECARE ---
CASE MANAGEMENT DISCHARGE SUMMARY PATIENT: JES EARL UNIT: [id number] ADM DATE: 04/14/19 AGE: 53 : 63 SEX: M ROOM/BED: D.2216 AUTHOR: XIN BO PHYSICIAN: REFERRING PHYSICIAN: BRADLEY TOMPKINS MD DATE OF SERVICE: 04/18/19 Discharge Plan Patient Name: JES EARL Facility: [facility]:[place] : 1965 Planned Disposition: Home Anticipated Discharge Date: 04/18/19 Discharge Date: 04/18/2019 Expected LOS: 4 Initial Reviewer: [email or web address] Initial Review Date: 04/18/2019 Generated: 04/18/19 6:57 pm Comments DCP- Discharge Planning Updated by [email or web address]: She Uriostegui on 04/18/19 10:[address] Patient Name: JES EARL Admission Status: Elective Accout number: [id number] Admission Date: 04-14-2019 : 1965 Admission Diagnosis:DISPLACEMENT OF INT FIX OF BONES OF FOOT AND TOES, INIT Attending: BRADLEY TOMPKINS Current LOS: 4 Anticipated DC Date: 04-18-2019 Planned Disposition: Home Primary Insurance: TRICAREER Discharge Planning Comments: CM MET WITH PATIENT ABOUT DC PLANNING AND NEEDS. STATES WOULD LIKE A KNEE SCOOTER. I CHECKED AND INSURANCE DOESN'T COVER. WILL GIVE HIM INFORMATION ON DME COMPANIES HE CAN RENT OR BUY ONE FROM. HOME IS SAFE. CM TO FOLLOW AND ASSIST NEEDED. Transformer Mechanic: She Uriostegui DCPIA - Discharge Planning Initial Assessment Updated by [email or web address]: She Uriostegui on 04/18/19 11:30 am * Is the patient Alert and Oriented? Yes * PCP EYAD * Pharmacy [facility] * Preadmission Environment Home with Family * ADLs Independent * Equipment None * List name and contact numbers for known caregivers / representatives who currently or will assist patient after discharge: ANALILIA, SPOUSE, * Verbal permission to speak to the caregivers and representatives has been obtained from the patient. Yes * Additional services required to return to the preadmission environment? No * Can the patient safely return to the preadmission environment? Yes * Has this patient been hospitalized within the prior 30 days at any hospital? Yes Last DP export: 04/18/19 10:37 am Patient Name: JES EARL Page 23102 at 1757 All edits/amendments must be made on the electronic document DICTATION DATE: 04/18/191756 TELECOMMUNICATOR: ANJEL 04/18/191756 RPT#: [id number] DC DATE:04/18/19 STATUS: DIS IN [facility] [address] [place] [address] END OF REPORT
== END 2019-04-18 14:34 | disposition home or self-care (01) | DRG 496 ==
LOC: D.OPS 06:04 → D.MS 06:04 → D.OPS 07:30 → D.MS 11:58 → D.OPS 11:59 → D.MS 11:59
PROVIDERS: Anesthesiology; Family Medicine; ADMIT Orthopaedic Surgery; ATTEND Orthopaedic Surgery
PROC: 0QPN04Z Removal of Internal Fixation Device from Right Metatarsal, Open Approach (ICD-10-PCS; principal; 2019-04-14 09:00)
PROC: 0QDN0ZZ Extraction of Right Metatarsal, Open Approach (ICD-10-PCS; 2019-04-14 09:00)
DX: T84.223A Displacement of internal fixation device of bones of foot and toes, initial encounter (principal); M86.171 Other acute osteomyelitis, right ankle and foot; D62 Acute posthemorrhagic anemia; I10 Essential (primary) hypertension; E78.5 Hyperlipidemia, unspecified; E11.9 Type 2 diabetes mellitus without complications; E11.40 Type 2 diabetes mellitus with diabetic neuropathy, unspecified

== ENCOUNTER → 2019-05-24 17:09 | Outpatient (CLI) | payer OTHER ==
[2019-04-14 12:22] VITALS: BMI 34.3
[~2019-05-24 17:09] MED LIST changes: +AUGMENTIN 875-11 TAB PO
[2019-05-24 18:07] LABS: BASOPHILS 0.1 % (0-2); EOSINOPHILS 1.8 % (0-7); HEMATOCRIT 44.5 % (42.0-54.0); HEMOGLOBIN 15.3 g/dL (13.5-17.5); IMMATURE GRANULOCYTES 0.3 % (0-5); LYMPHOCYTES 27.9 % (15-50); MCH 28.6 pg (26.0-34.0); MCHC 34.4 g/dL (31.0-37.0); MCV 83.2 fL (80.0-100.0); MEAN PLATELET VOLUME 10.4 fL (7.4-10.4); MONOCYTES 11.3 % (2-11); NEUTROPHILS 58.6 % (40-80); PLATELET COUNT 372 10x3/uL (130-400); RBC 5.35 10x6/uL (4.20-6.10); WBC 9.3 10x3/uL (4.8-10.8)
[2019-05-24 19:28] LABS: ERYTHROCYTE SEDIMENTATION RATE 12 mm/hr (0-20)
== END | disposition home or self-care (01) ==
LOC: D.LABREF 17:09
PROVIDERS: ATTEND Nurse Practitioner Family
DX: E11.9 Type 2 diabetes mellitus without complications (principal); S90.921A Unspecified superficial injury of right foot, initial encounter

== ENCOUNTER → 2020-02-24 13:43 | Outpatient (CLI) | payer OTHER ==
[2019-04-14 12:22] VITALS: BMI 34.3
== END | disposition home or self-care (01) ==
LOC: D.MRI 13:43
PROVIDERS: ATTEND Clinical Nurse Specialist Family Health
DX: M79.671 Pain in right foot (principal)

== ENCOUNTER 2021-01-29 13:02 | Inpatient (IN) | payer OTHER ==
[~2021-01-29] VITALS: Ht 177.8 cm; Wt 104.3 kg
[2021-01-29] VITALS (10 sets, daily range): BP systolic 106–160; BP diastolic 69–117
--- NOTE | 2021-01-29 13:35 | NUR ---
SALINE LOCK PLACED TO RIGHT HAND WITH INITIAL BLOOD DRAW AND FIRST SET BLOOD CULTURES. LR 1000ML X 2 BAG WIDE OPEN INFUSING.
--- NOTE | 2021-01-29 13:45 | NUR ---
2ND SALINE LOCK PLACE TO LEFT HAND WITH 20GA CATHETER. 3RD 1000ML LR TO INFUSE WIDE OPEN.
--- NOTE | 2021-01-29 13:55 | NUR ---
O2 AT 2L/M VIA NC INITIATED. SPO2 88-89 ON RA.
--- NOTE | 2021-01-29 14:15 | NUR ---
O2 INCREASED TO 4L/M PER ABG RESULTS.
--- NOTE | 2021-01-29 14:19 | NUR ---
NOTE: ALL PRIOR NOTES ENTERED UNDER Justin HOBBS RN, SIGN-IN.
[2021-01-29 14:20] LABS: ALBUMIN 3.3 g/dL (3.4-5.0); ANION GAP 15.7 mmol/L (8-16); BILIRUBIN - TOTAL 0.72 mg/dL (0.2-1.3); CALCIUM 9.1 mg/dL (8.5-10.1); CARBON DIOXIDE 23.5 mmol/L (21.0-32.0); CREATININE - SERUM 1.2 mg/dL (0.6-1.3); MAGNESIUM - SERUM 1.6 mg/dL (1.8-2.4); POTASSIUM - SERUM 4.2 mmol/L (3.5-5.1); PROTEIN - SERUM 6.9 g/dL (6.4-8.2)
[2021-01-29 14:24] LABS: BASOPHILS 0.1 % (0-2); BILIRUBIN NEGATIVE (NEGATIVE); EOSINOPHILS 0.1 % (0-7); HEMATOCRIT 50.3 % (42.0-54.0); HEMOGLOBIN 17.1 g/dL (13.5-17.5); IMMATURE GRANULOCYTES 0.2 % (0-5); KETONE NEGATIVE (NEGATIVE); LYMPHOCYTE ABS# 0.55 10x3/uL (1.32-3.57); LYMPHOCYTES 3.6 % (15-50); MCH 29.8 pg (26.0-34.0); MCV 87.8 fL (80.0-100.0); MEAN PLATELET VOLUME 11.2 fL (7.4-10.4); MONOCYTES 9.3 % (2-11); NEUTROPHIL ABS# 13.12 10x3/uL (1.78-5.38); NEUTROPHILS 86.7 % (40-80); NITRITE NEGATIVE (NEGATIVE); PLATELET COUNT 237 10x3/uL (130-400); RBC 5.73 10x6/uL (4.20-6.10); RDW 12.4 % (11.5-14.5); WBC 15.1 10x3/uL (4.8-10.8)
[2021-01-29 15:33] LABS: INFLUENZA TYPE A NEGATIVE (NEGATIVE); INFLUENZA TYPE B NEGATIVE (NEGATIVE); SARS-CoV-2 ANTIGEN NEGATIVE- SARS-COV-2 (NEGATIVE)
--- NOTE | 2021-01-29 16:00 | NUR ---
UP TO BSC. EXPELLED LARGE SOFT STOOL WITH 1000ML URINE.
[2021-01-29 16:26] LABS: INR 1.14 (0.85-1.17); PROTIME 13.6 SECONDS (11.6-15.0)
[2021-01-29 16:28] LABS: D-DIMER-QUANTITATIVE 0.69 ug/mLFEU (0.20-0.54)
[2021-01-29 16:45] LABS: C-REACTIVE PROTEIN 1.4 mg/dL (0.0-0.9)
[2021-01-29 17:22] LABS: ERYTHROCYTE SEDIMENTATION RATE 6 mm/hr (0-20)
[2021-01-29 17:55] LABS: CREATINE KINASE 88 UL (21-232); TROPONIN-I 0.021 ng/mL (0.000-0.060)
[2021-01-29] MEDS ORDERED: PEPCID40 MG PO (19:31)
[2021-01-29] MEDS ORDERED: PROTONIX40 MG PO (19:32)
[2021-01-30 00:09] LABS: CKMB 1.4 U/L (0.0-3.6); CREATINE KINASE 87 UL (21-232); TROPONIN-I < 0.017 ng/mL (0.000-0.060)
[2021-01-30 00:56] VITALS: BP 101/58; BMI 33.0
[2021-01-30 04:00] VITALS: BP 124/66
--- NOTE | 2021-01-30 07:13 | NUR ---
RECEIVE SHIFT REPORT. IN COVID ISOLATION. ALERT AND ORIENTED. DENIES ANY NEEDS AT THIS TIME. ON 4L NC. WILL CONTINUE POC AND SAFETY PRECAUTIONS. CALL LIGHT IN REACH.
[2021-01-30 07:27] LABS: BASOPHILS 0.1 % (0-2); EOSINOPHILS 0.5 % (0-7); HEMATOCRIT 41.3 % (42.0-54.0); IMMATURE GRANULOCYTES 0.3 % (0-5); LYMPHOCYTES 9.4 % (15-50); MCH 28.8 pg (26.0-34.0); MCHC 32.7 g/dL (31.0-37.0); MCV 88.2 fL (80.0-100.0); MEAN PLATELET VOLUME 10.7 fL (7.4-10.4); NEUTROPHIL ABS# 14.41 10x3/uL (1.78-5.38); NEUTROPHILS 79.7 % (40-80); PLATELET COUNT 229 10x3/uL (130-400); RBC 4.68 10x6/uL (4.20-6.10); RDW 12.7 % (11.5-14.5); WBC 18.1 10x3/uL (4.8-10.8)
[2021-01-30 07:28] LABS: HEMOGLOBIN 13.5 g/dL (13.5-17.5)
[2021-01-30 07:55] LABS: ALKALINE PHOSPHATASE 132 U/L (30-120); ALT (SGPT) 40 U/L (10-68); BILIRUBIN - TOTAL 0.66 mg/dL (0.2-1.3); CALCIUM 8.8 mg/dL (8.5-10.1); CARBON DIOXIDE 26.8 mmol/L (21.0-32.0); CHLORIDE - SERUM 107 mmol/L (98-107); CKMB 0.9 U/L (0.0-3.6); CREATINE KINASE 66 UL (21-232); GLUCOSE 150 mg/dL (74-106); PROTEIN - SERUM 5.7 g/dL (6.4-8.2); SODIUM 140 mmol/L (136-145); TROPONIN-I < 0.017 ng/mL (0.000-0.060); UREA NITROGEN 16 mg/dL (7-18)
[2021-01-30 07:56] LABS: ALBUMIN 2.4 g/dL (3.4-5.0); CALC OSMOLALITY 282 mosm/kg (275-300); CREATININE - SERUM 0.8 mg/dL (0.6-1.3); POTASSIUM - SERUM 3.5 mmol/L (3.5-5.1); eGFR NON AFRICAN AMERICAN > 90 mL/min (90-120)
[2021-01-30 08:00] VITALS: BP 124/68
[2021-01-30 11:00] VITALS: BP 120/71
[2021-01-30 13:08] VITALS: Ht 177.8 cm; Wt 104.3 kg
[2021-01-30 15:00] VITALS: BP 121/64
[2021-01-30 21:15] VITALS: BP 165/100
[2021-01-31 05:28] VITALS: BP 143/77
--- NOTE | 2021-01-31 05:43 | NUR ---
PT EASILY ARROUSABLE THIS MORNING, SLEPT SOME LAST NOC. STATES THAT MORPHINE REALLY DIDN'T HELP THE BODY ACHES THAT HE HAS. UP AD KWAME TO BATHROOM. NO ACUTE S/SX NOTED. WILL CONTINUE TO MONITOR
[2021-01-31 08:27] VITALS: BP 150/85
--- NOTE | 2021-01-31 08:47 | NUR ---
PATIENT AAOX4, RESP EVEN AND NON LABORED, NO S/S OF DISTRESS, MEDICATIONS ADMINISTERED WITH NO COMPLICATIONS, PATIENT IS OFF ISOLATION PER INFECTION CONTROL, NO FURTHER NEEDS AT THIS TIME, CHAO, ALONZOP
--- NOTE | 2021-01-31 14:51 | NUR ---
I have reviewed this patient and I concur with the Shift Assessment completed by the Licensed Practical Nurse today this shift.
[2021-01-31 17:35] VITALS: BP 158/86
[2021-01-31 19:28] VITALS: BP 167/90
[2021-02-01 04:49] VITALS: BP 158/92
[2021-02-01 04:55] LABS: BASOPHILS 0.1 % (0-2); EOSINOPHILS 2.6 % (0-7); HEMOGLOBIN 13.9 g/dL (13.5-17.5); IMMATURE GRANULOCYTES 0.3 % (0-5); LYMPHOCYTES 12.4 % (15-50); MCH 28.7 pg (26.0-34.0); MCHC 33.1 g/dL (31.0-37.0); MCV 86.8 fL (80.0-100.0); MEAN PLATELET VOLUME 10.4 fL (7.4-10.4); MONOCYTES 13.8 % (2-11); NEUTROPHIL ABS# 6.82 10x3/uL (1.78-5.38); NEUTROPHILS 70.8 % (40-80); PLATELET COUNT 251 10x3/uL (130-400); RBC 4.84 10x6/uL (4.20-6.10); RDW 12.1 % (11.5-14.5)
[2021-02-01 05:02] LABS: WBC 9.6 10x3/uL (4.8-10.8)
[2021-02-01 05:25] LABS: ALBUMIN 2.4 g/dL (3.4-5.0); ALKALINE PHOSPHATASE 147 U/L (30-120); BILIRUBIN - TOTAL 0.75 mg/dL (0.2-1.3); CALCIUM 8.6 mg/dL (8.5-10.1); CHLORIDE - SERUM 104 mmol/L (98-107); CREATININE - SERUM 0.9 mg/dL (0.6-1.3); MAGNESIUM - SERUM 1.8 mg/dL (1.8-2.4); PHOSPHOROUS 3.6 mg/dL (2.5-4.9); POTASSIUM - SERUM 3.6 mmol/L (3.5-5.1); PROTEIN - SERUM 6.4 g/dL (6.4-8.2); SODIUM 138 mmol/L (136-145); eGFR NON AFRICAN AMERICAN > 90 mL/min (90-120)
[2021-02-01 05:30] LABS: ALT (SGPT) 23 U/L (10-68); CALC OSMOLALITY 279 mosm/kg (275-300); GLUCOSE 199 mg/dL (74-106); UREA NITROGEN 8 mg/dL (7-18)
--- NOTE | 2021-02-01 07:10 | NUR ---
PT LYING IN BED WITH EYES CLOSED. RAISES EASILY TO VERBAL STIMULI. O2 VIA NC @ [address] AAOX4[address] DENIES NEEDS AT THIS TIME. CLIR. BED IN LOWEST POSITION. SIDE RAILS X2
[2021-02-01 08:37] VITALS: BP 138/73
[2021-02-01 12:25] VITALS: BP 167/95
--- NOTE | 2021-02-01 13:26 | NUR ---
Nutrition Follow-up: Eating well. Covid (-). Diet: Diabetic PO intake: 100% this AM No new wt; last wt: 230# (01/30) Labs noted: Glu 199, Alb 2.4 Meds noted: Florajen, Humalog, Protonix, NS @ 150, electrolyte protocol -RD will follow up within 7 days if pt still admitted.
--- NOTE | 2021-02-01 14:11 | NUR ---
I have reviewed this patient and I concur with the Shift Assessment completed by the Licensed Practical Nurse today this shift.
[2021-02-01 15:42] VITALS: BP 162/86
[2021-02-01 20:54] VITALS: BP 165/97
[2021-02-02 01:56] VITALS: BP 146/76
[2021-02-02 06:29] LABS: BASOPHILS 0.2 % (0-2); EOSINOPHILS 3.1 % (0-7); HEMATOCRIT 43.1 % (42.0-54.0); HEMOGLOBIN 14.4 g/dL (13.5-17.5); IMMATURE GRANULOCYTES 0.5 % (0-5); LYMPHOCYTE ABS# 1.37 10x3/uL (1.32-3.57); LYMPHOCYTES 16.2 % (15-50); MCH 28.9 pg (26.0-34.0); MCHC 33.4 g/dL (31.0-37.0); MCV 86.4 fL (80.0-100.0); MEAN PLATELET VOLUME 10.4 fL (7.4-10.4); MONOCYTES 17.3 % (2-11); NEUTROPHIL ABS# 5.29 10x3/uL (1.78-5.38); NEUTROPHILS 62.7 % (40-80); PLATELET COUNT 267 10x3/uL (130-400); RBC 4.99 10x6/uL (4.20-6.10); RDW 12.1 % (11.5-14.5); WBC 8.4 10x3/uL (4.8-10.8)
[2021-02-02 06:36] LABS: ALKALINE PHOSPHATASE 165 U/L (30-120); BILIRUBIN - TOTAL 0.49 mg/dL (0.2-1.3); CALC OSMOLALITY 283 mosm/kg (275-300); CALCIUM 8.8 mg/dL (8.5-10.1); CARBON DIOXIDE 26.8 mmol/L (21.0-32.0); CHLORIDE - SERUM 104 mmol/L (98-107); CREATININE - SERUM 0.8 mg/dL (0.6-1.3); GLUCOSE 216 mg/dL (74-106); POTASSIUM - SERUM 4.1 mmol/L (3.5-5.1); PROTEIN - SERUM 6.7 g/dL (6.4-8.2); SODIUM 139 mmol/L (136-145); UREA NITROGEN 9 mg/dL (7-18); eGFR NON AFRICAN AMERICAN > 90 mL/min (90-120)
[2021-02-02 06:43] VITALS: BP 140/90
[2021-02-02 06:44] LABS: ALBUMIN 2.4 g/dL (3.4-5.0); ALT (SGPT) 37 U/L (10-68)
[2021-02-02 09:00] VITALS: BP 133/78
--- NOTE | 2021-02-02 09:34 | NUR ---
PATIENT AAOX4 SEMI FOWLERS, RESP EVEN AND NON LABORED, PATIENT STATES HE IS NOT IN DISTRESS BUT STATS ARE 86% ON 2L, O2 BROUGHT UP TO 95% ON 6L, RT NOTIFIED, MEDICATIONS ADMINISTERED WITH NO COMPLICATIONS, IV FLUIDS INFUSING, NO FURTHER NEEDS AT THIS TIME, CLIR, BLP
[2021-02-02 12:35] VITALS: BP 156/83
[2021-02-02 16:58] VITALS: BP 145/66
[2021-02-02 21:38] VITALS: BP 158/83
[2021-02-03 00:13] VITALS: BP 131/70
[2021-02-03 04:19] VITALS: BP 139/83
[2021-02-03 04:58] LABS: BASOPHILS 0.4 % (0-2); EOSINOPHILS 4.8 % (0-7); HEMATOCRIT 42.5 % (42.0-54.0); HEMOGLOBIN 14.3 g/dL (13.5-17.5); IMMATURE GRANULOCYTES 0.7 % (0-5); LYMPHOCYTE ABS# 1.43 10x3/uL (1.32-3.57); LYMPHOCYTES 19.5 % (15-50); MCH 28.8 pg (26.0-34.0); MCHC 33.6 g/dL (31.0-37.0); MCV 85.7 fL (80.0-100.0); MEAN PLATELET VOLUME 10.3 fL (7.4-10.4); MONOCYTES 18.9 % (2-11); NEUTROPHIL ABS# 4.08 10x3/uL (1.78-5.38); NEUTROPHILS 55.7 % (40-80); PLATELET COUNT 302 10x3/uL (130-400); RBC 4.96 10x6/uL (4.20-6.10); RDW 12.2 % (11.5-14.5); WBC 7.3 10x3/uL (4.8-10.8)
[2021-02-03 05:19] LABS: ALBUMIN 2.5 g/dL (3.4-5.0); ALKALINE PHOSPHATASE 165 U/L (30-120); ALT (SGPT) 55 U/L (10-68); BILIRUBIN - TOTAL 0.41 mg/dL (0.2-1.3); CALC OSMOLALITY 279 mosm/kg (275-300); CALCIUM 8.7 mg/dL (8.5-10.1); CARBON DIOXIDE 24.1 mmol/L (21.0-32.0); CHLORIDE - SERUM 104 mmol/L (98-107); CREATININE - SERUM 0.8 mg/dL (0.6-1.3); GLUCOSE 187 mg/dL (74-106); POTASSIUM - SERUM 3.3 mmol/L (3.5-5.1); PROTEIN - SERUM 6.5 g/dL (6.4-8.2); SODIUM 138 mmol/L (136-145); UREA NITROGEN 11 mg/dL (7-18); eGFR NON AFRICAN AMERICAN > 90 mL/min (90-120)
[2021-02-03 09:48] VITALS: BP 144/88
[2021-02-03] MEDS ORDERED: VIBRAMYCIN 100100 MG PO (12:25)
[2021-02-03] MEDS ORDERED: MUCINEX600 MG PO (12:26)
[2021-02-03] MEDS ORDERED: FLUTICASONE PRO16 GM NASAL (12:26)
[2021-02-03] MEDS ORDERED: SINGULAIR10 MG PO (12:26)
[2021-02-03] MEDS ORDERED: TESSALON PERLE100 MG PO (12:26)
[2021-02-03] MEDS ORDERED: FLORAJEN3 CAPS460 MG PO (12:26)
[2021-02-03] MEDS ORDERED: OMNICEF300 MG PO (12:27)
[2021-02-03] MEDS ORDERED: PROTONIX40 MG PO (12:27)
[2021-02-03 13:11] VITALS: BP 145/75
--- NOTE | 2021-02-03 14:28 | NUR ---
SALINE LOCK TAKEN OUT, DISCHARGE PAPERS DISCUSSED WITH PATIENT AND TRANSPORT CALLED TO TAKE TO ER EXIT FOR TO MEET FOR RIDE HOME.
--- NOTE | 2021-02-03 19:31 | MORECARE ---
CASE MANAGEMENT DISCHARGE SUMMARY PATIENT: JES CORREA UNIT: [id number] ADM DATE: 01/29/21 AGE: 55 : 63 SEX: M ROOM/BED: D.2131 AUTHOR: BETZY,DOC PHYSICIAN: REFERRING PHYSICIAN: ALETHA CASTANO MD DATE OF SERVICE: 02/03/21 Case Management Discharge Planning Summary COMMENTS ENTERED DATE: 02/03/21 19:26 CT COMMENT TYPE: Discharge Planning REVIEWER: Yobani Martinez CM met with patient to complete DC plan and to evaluate needs. Patient lives at home independently with his spouse, Aida Correa, . Patient stated that their home is safe and has electricity and running water. Patient stated that he has no problems paying for medications and they fill their medications at [facility]. Patient stated that his primary care physician is Dr. Castano. At discharge, the patient plans to return home and feels this is a safe discharge. CM discussed availability of home health, rehab services, and medical equipment. Patient declined HHS, SNF, IPR, and DME. Patient voiced no other needs at this time and is satisfied with DC plan. Transportation provider at discharge will be with his spouse Aida. CM will continue to follow and will assist as needed with dc plans/needs. OKP REVIEW SUMMARY ANTICIPATED D/C DATE: 02/03/2021 EXPECTED LOS : 5 CASE STATUS: DCP Initiated INITIAL REVIEW: 01/29/2021 INITIAL REVIEWER: Yobani Martinez FINAL DISCHARGE DISPOSITION: : FINAL REVIEWER: FINAL REVIEW DATE: OKP Focus Questions & Answers OKP Evaluation QUESTION: ANSWER Family / Caregiver's ability to cope with chronic illness: : a. Adequate (ability to meet patient's medical needs, ensures patient attends medical appts.) Patient gives permission to discuss discharge plans with: (name, relationship and number) : spouse, Aida Correa, Patient's ability to cope with chronic illness : d. No chronic illness Patient's current cognitive status: : *Oriented to person, place, situation, time and present Patient and/or caregiver agree upon recommended discharge plan? : Yes Physical Status: : Independent with ADL's Family / Caregiver's ability to cope with chronic illness: : a. Adequate (ability to meet patient's medical needs, ensures patient attends medical appts.) Functional screen assessment: : Basic needs can adequately be met by self Does the patient have the ability to pay for or attain post discharge needs / services? : Yes Living Arrangements: : Home with Spouse/Significant Other Is there a likelihood that the patient will require additional services to return to the preadmission environment? : No Equipment needed for post hospitalization: : None Baseline cognitive status: : *Oriented to person, place, situation, time and present Patient with capacity for self-care or can be cared for in same environment as prior to hospitalization? : Yes Physical environment modification needed / anticipated for discharge: : No Medication Management: : Patient states can afford medications Medication Management: : Patient states can read and understand medication labels Pharmacy name(s): : [facility] Does Patient have transportation to get home and to follow-up medical appointments when discharged from the hospital? : Yes Would patient like to participate in any Care Coordination programs (if applicable): : Not applicable Does the patient have electricity at home? : Yes Does the patient have running water in their house? : Yes Equipment in use: : None Mental health screen: : No mental health history DCP Re-evaluation QUESTION: ANSWER Would patient like to participate in any Care Coordination programs (if applicable): : Not applicable PATIENT: JES CORREA ENCOUNTER: [id number] MEDICAL RECORD#: [id number] ADMISSION DATE: 01/29/2021 DISCHARGE DATE: 02/03/2021 ATTENDING MD: ALETHA SUAREZ : AGE: 55 MARITAL STATUS: M DC PLAN ID: [id number] FACILITY: [facility] PRINTED ON: 02/03/21 19:31 CT All edits/amendments must be made on the electronic document DICTATION DATE: 02/03/211929 ANSWERING SERVICE AGENT: ANJEL 02/03/211929 RPT#: [id number] DC DATE:02/03/21 STATUS: DIS IN [facility] [address] [place] [address] END OF REPORT
== END 2021-02-03 14:31 | disposition home or self-care (01) | DRG 871 ==
LOC: D.ER 13:02 → D.M2 15:43
PROVIDERS: Emergency Medicine; Internal Medicine Pulmonary Disease; ADMIT Family Medicine; ATTEND Family Medicine
DX: A41.9 Sepsis, unspecified organism (principal); J18.9 Pneumonia, unspecified organism; J96.01 Acute respiratory failure with hypoxia; J44.0 Chronic obstructive pulmonary disease with (acute) lower respiratory infection; Z20.822 Contact with and (suspected) exposure to COVID-19; E11.65 Type 2 diabetes mellitus with hyperglycemia; E11.40 Type 2 diabetes mellitus with diabetic neuropathy, unspecified; I10 Essential (primary) hypertension; E66.9 Obesity, unspecified; Z68.39 Body mass index [BMI] 39.0-39.9, adult; E83.42 Hypomagnesemia; K21.9 Gastro-esophageal reflux disease without esophagitis; Z87.891 Personal history of nicotine dependence